=== PATIENT | male | born 1980 | race Caucasian/White ===

== ENCOUNTER 2025-02-20 08:15 | Emergency (ER) | payer MEDICAID, SELFPAY ==
[2025-02-20 08:16] VITALS: BMI 46.5
[2025-02-20 08:22] VITALS: BP 156/87; PULSE 100; RESP 18; TEMP 36.4; O2SAT 97
--- NOTE | 2025-02-20 08:24 | XR_ITS ---
Examination: CT abdomen and pelvis without contrast. Coronal 3-D reconstructions. Sagittal 2-D reconstructions. Date and time of exam: February 20, 2025, 0903 hours INDICATIONS: Onset generalized abdominal pain today CTDI: vol (mGy): 13.9 DLP: (mGycm): 977 Technique: Axial images of the abdomen have been obtained, 3 mm slice thickness Intravenous contrast material has not been administered. Low dose protocols were performed. One or more of the following dose reduction techniques were used; automated exposure control, adjustment of the mA and/or KV according to patient size, use of iterative reconstruction technique. Findings: Liver is irregular in contour 19 mm low-density inferior right lobe liver lesion likely cyst Significant splenomegaly Portosystemic collateral vessels medial to the spleen No pancreatic mass Mild right hydronephrosis, 5 mm distal right ureteral vesicle junction calculus Normal appendix No bowel obstruction Urinary bladder intact No prostatomegaly Significant disc narrowing L5-S1 IMPRESSION: Cirrhosis Splenomegaly Mild right hydronephrosis secondary to 5 mm distal right ureteral vesicle junction calculus
--- NOTE | 2025-02-20 08:24 | PD.EDRME ---
Rapid Medical Screening Exam RME Arrival date/time: 02/20/25 08:15 44-year-old male with no known medical history presents to the emergency room with a chief complaint of right-sided 10 out of 10 flank pain x 2 days I have greeted and performed a focused initial assessment of this patient. A comprehensive ED assessment and evaluation of the patient, analysis of all test results, and completion of the medical decision making process will be conducted by additional ED providers. Chief Complaint: Abdominal Pain Time Seen by Provider: 02/20/25 08:18 Vital signs: Vital Signs Temperature 97.6 F 02/20/25 08:22 Pulse Rate 100 02/20/25 08:22 Respiratory Rate 18 02/20/25 08:22 Blood Pressure 156/87 H 02/20/25 08:22 Pulse Oximetry (%) 97 02/20/25 08:22 Oxygen Delivery Method Room Air 02/20/25 08:22 Vital signs reviewed by provider: Yes Exam: Right CVA tenderness with palpation GCS 15, strong and regular rhythm, Clinical Impression: Renal calculi/pyelonephritis/appendicitis
[2025-02-20] MEDS: ONDANSETRON ODT 4 MG TABRAP PO (08:33)
[2025-02-20] MEDS: KETOROLAC INJ 60 MG/2 ML VIAL 30 MG IM (08:33)
[2025-02-20] MEDS: HYDROcodone/APAP 5/325 TABLET 1 TAB PO (08:33)
[2025-02-20 08:59] LABS: Basophils # (Auto) 0.1 Thou/mm3 (0.0-0.2); Basophils % (Auto) 1 % (0-2.5); Eosinophils # (Auto) 0.3 Thou/mm3 (0.0-0.5); Eosinophils % (Auto) 3 % (0-10); Hematocrit 48.2 % (41.0-53.0); Hemoglobin 18.4 g/dL (13.5-16.0); Immature Granulocytes Auto 0.04 Thou/mm3 (0.00-0.00); Lymphocytes # (Auto) 2.1 Thou/mm3 (1.0-4.8); Lymphocytes % (Auto) 20 % (10-50); Mean Corpuscular HGB Conc 38.2 g/dl (31.0-37.0); Mean Corpuscular Hemoglobin 33.6 pg (25.0-35.0); Mean Corpuscular Volume 88 fL (80-100); Monocytes # (Auto) 0.7 Thou/mm3 (0.0-0.8); Monocytes % (Auto) 7 % (0-12); Neutrophils # (Auto) 7.5 Thou/mm3 (1.8-7.7); Neutrophils % (Auto) 70 % (37-80); Nucleated Red Blood Cell # 0.00 Thou/mm3 (0.00-0.00); Nucleated Red Blood Cell % 0 /100 WBC (0); Platelet Count 132 Thou/mm3 (140-440); RDW Standard Deviation 41.0 fL (35.1-43.9); Red Blood Count 5.47 Miln/mm3 (4.50-5.90); White Blood Count 10.7 Thou/mm3 (3.8-10.6)
[2025-02-20 09:20] LABS: Alanine Aminotransferase 61 U/L (10-49); Albumin, Serum 4.6 gm/dL (3.5-5.0); Albumin/Globulin Ratio 2.2 (1.2-2.2); Alkaline Phosphatase 94 U/L (46-116); Anion Gap 10 (7-16); Aspartate Amino Transferase 47 U/L (0-34); BUN/Creatinine Ratio 11 Ratio (12-20); Bilirubin,Total 2.0 mg/dL (0.3-1.2); Blood Urea Nitrogen 10 mg/dL (9-23); Calcium 10.0 mg/dL (8.3-10.6); Calcium (Corrected) 10.0 mg/dL (8.5-10.1); Carbon Dioxide 26.2 mMol/L (20.0-31.0); Chloride 108 mMol/L (98-107); Creatinine (Component) 0.9 mg/dL (0.6-1.3); Estimated Creatinine Clearance 128.6 mL/min (>60); Globulin 2.1 gm/dL (2.3-3.5); Glucose 115 mg/dL (74-106); Lipase 37 U/L (12-53); Osmolality,Calculated 286 (275-295); Potassium 4.2 mMol/L (3.4-5.1); Sodium 144 mMol/L (136-145); Total Protein 6.7 gm/dL (5.7-8.2); eGFR > 60 See Note
[2025-02-20 09:28] VITALS: BP 143/88; PULSE 95; RESP 19; O2SAT 98
[2025-02-20 11:10] VITALS: BP 128/88; PULSE 89; RESP 18; TEMP 36.7; O2SAT 96
--- NOTE | 2025-02-20 11:29 | EDNOTE_ITS ---
ED Male Genitalurinary RME/HPI General Chief complaint: Abdominal Pain Stated complaint: RIGHT FLANK PAIN TODAY Time Seen by Provider: 02/20/25 08:18 Arrival date/time: 02/20/25 08:15 RME / HPI RME / HPI Narrative: 02/20/25 08:15 44-year-old male with no known medical history presents to the emergency room with a chief complaint of right-sided 10 out of 10 flank pain x 2 days I have greeted and performed a focused initial assessment of this patient. A comprehensive ED assessment and evaluation of the patient, analysis of all test results, and completion of the medical decision making process will be conducted by additional ED providers. DR. HOLLIS MAIN ED EVALUATION 44 year old male with no known medical history presents to the ED for evaluation of right flank pain beginning 2 days ago and worsening this morning. Described as colicky in sensation, rating 10/10 in severity. No known modifying factors at home. Denies fever, chills. Denies chest pain, cough, shortness of breath. Denies vomiting, di arrhea, constipation. Denies dysuria, urinary frequency and urgency. Exam: Right CVA tenderness with palpation GCS 15, strong and regular rhythm, Impression: Renal calculi/pyelonephritis/appendicitis Related Data Previous Rx's ?Medication ?Instructions ?Recorded albuterol sulfate 90 mcg/actuation 2 puff inhalation Q 6H PRN 11/06/17 aerosol inhaler (ProAir HFA) shortness of breath #6.7 grams ibuprofen 600 mg tablet 600 mg PO Q6H PRN pain #30 t abs 02/20/25 tamsulosin 0.4 mg capsule 0.4 mg PO QDAY #14 caps 02/11 Allergies Allergy/AdvReac Type Severity Reaction Status Date / Time No Known Allergies Allergy Verified 02/20/25 08:17 Review of Systems Review of Systems Systems Reviewed: All systems reviewed, normal except as documented Past Medical History Past Medical History CARDIAC: Negative Congestive Heart Failure RESPIRATORY: Negative Chronic Obstructive Pulmonary Disease (COPD) GENITOURINARY: Negative Renal Disease ENDOCRINE: Negative Diabetes Mellitus Type 1 or Diabetes Mellitus Type 2 Social History SMOKING STATUS: Never smoker ED Exam Narrative Physical exam: GENERAL APPEARANCE: alert and oriented x 4, well-developed, well-nourished, drowsy on arrival to ED HEENT: Normocephalic, atraumatic; pupils equal, round, reactive to light; EOMI; mucous membranes pink, moist; oropharynx clear NECK: Supple LUNGS: CTABL; no wheezes, no rales, no rhonchi HEART: Regular rate, regular rhythm; normal S1, S2; no murmurs ABDOMEN: non distended; normal BS; soft, no tenderness, no guarding, no rebound; no masses, no organomegaly, no hernia BACK: no CVA tenderness EXTREMITIES: atraumatic; no edema NEUROLOGIC: drowsy, oriented x4; cranial nerves II-XII grossly intact; no focal sensory or motor deficits PSYCHIATRIC: appropriate mood and affect SKIN: warm, dry, normal color; no rashes Course Course Course Narrative: Patient remains clinically stable throughout the emergency department visit. We reviewed all the results, analysis, and treatment plans. Patient is amenable to discharge. Strict return precautions were outlined. Quality Measures none Orders Category Date Time Status CT abdomen pelvis wo con Stat Exams 02/20/25 08:24 Completed CBC Stat Lab 02/20/25 08:40 Completed CMP [Comprehensive Metabolic Panel] Stat Lab 02/20/25 08:40 Completed Drug Screen,Urine Stat Lab 02/20/25 12:50 Completed Lipase Stat Lab 02/20/25 08:40 Completed UA [Urinalysis] Stat Lab 02/20/25 12:50 Completed Urine Culture Stat Lab 02/20/25 12:50 Received HYDROcodone*/APAP 5/325 [Calcium 5/325] Med 02/20/25 08:23 Discontinued 1 tab PO X1 ONE Ketorolac Inj [Toradol Inj] Med 02/20/25 08:23 Discontinued 30 mg IM X1 ONE Ondansetron Odt [Zofran Odt] Med 02/20/25 08:23 Discontinued 4 mg PO X1 ONE Sodium Chloride 0.9% 1000 ml [Ns] 1,000 ml Med 02/20/25 11:26 Discontinued IV 999 mls/hr Sodium Chloride 0.9% 1000 ml [Ns] 1,000 ml Med 02/20/25 12:27 Active IV 999 mls/hr Tamsulosin HCl [Flomax] Med 02/20/25 11:27 Discontinued 0.4 mg PO X1 ONE Vital Signs Vital signs: Vital Signs Temperature 97.6 F 02/20/25 08:22 Pulse Rate 100 02/20/25 08:22 Respiratory Rate 18 02/20/25 08:22 Blood Pressure 156/87 H 02/20/25 08:22 Pulse Oximetry (%) 97 02/20/25 08:22 Oxygen Delivery Method Room Air 02/20/25 08:22 Pulse ox is 97% on room air which is adequate. Urogenital - Male MDM Narrative MDM Narrative:: Johanny Suazo, simi scribing for and in the presence of Dr. Hollis. Patient data External records reviewed:: [facility] previous records Clinical information provided by:: patient Social determinants that could affect healthcare access:: none Patient has the following chronic illnesses:: No stated medical history reported How is presenting disease/condition affected by chronic disease/condition?: no chronic disease Evaluation data The following diagnostics were reviewed and interpreted by me:: lab results and radiology exam(s) Lab and/or radiology exams considered but not ordered:: None Interpretation Summary: Ordering Physician: Jerry Herrmann Date of Service: 02/20/25 Procedure(s): CT abdomen pelvis wo con Accession Number(s): [id number] cc: Jerry Herrmann; Gaudencio Sinclair MD; Carlton Talbert MD~ Examination: CT abdomen and pelvis without contrast. Coronal 3-D reconstructions. Sagittal 2-D reconstructions. Date and time of exam: February 20, 2025, 0903 hours INDICATIONS: Onset generalized abdominal pain today CTDI: vol (mGy): 13.9 DLP: (mGycm): 977 Technique: Axial images of the abdomen have been obtained, 3 mm slice thickness Intravenous contrast material has not been administered. Low dose protocols were performed. One or more of the following dose reduction techniques were used; automated exposure control, adjustment of the mA and/or KV according to patient size, use of iterative reconstruction technique. Findings: Liver is irregular in contour 19 mm low-density inferior right lobe liver lesion likely cyst Significant splenomegaly Portosystemic collateral vessels medial to the spleen No pancreatic mass Mild right hydronephrosis, 5 mm distal right ureteral vesicle junction calculus Normal appendix No bowel obstruction Urinary bladder intact No prostatomegaly Significant disc narrowing L5-S1 IMPRESSION: Cirrhosis Splenomegaly Mild right hydronephrosis secondary to 5 mm distal right ureteral vesicle junction calculus Dictated By: Carlton Talbert MD Signed By: <Electronically signed by Carlton Talbert MD in OV> 02/20/25 1026 Medications / Prescriptions Medications or Prescriptions considered but not ordered:: None Medication administrations:: Medication Administration History Sodium Chloride (Ns) 1,000 mls @ 999 mls/hr IV .Q1H1M ONE Stop: 02/20/25 13:27 Last Admin: 02/20/25 12:13 Dose: 999 mls/hr Documented By: VL Discontinued Medications Hydrocodone Bitart/Acetaminophen (Hydrocodone/Apap 5/325 Tablet) 1 tab PO X1 ONE Stop: 02/20/25 08:24 Last Admin: 02/20/25 08:33 Dose: 1 tab Documented By: VL Sodium Chloride (Ns) 1,000 mls @ 999 mls/hr IV .Q1H1M ONE Stop: 02/20/25 12:26 Last Admin: 02/20/25 11:51 Dose: 999 mls/hr Documented By: JESICA Ketorolac Tromethamine (Ketorolac Inj 60 Mg/2 Ml Vial) 30 mg IM X1 ONE Stop: 02/20/25 08:24 Last Admin: 02/20/25 08:33 Dose: 30 mg Documented By: JESICA Ondansetron HCl (Ondansetron Odt 4 Mg Tabrap) 4 mg PO X1 ONE; Protocol Stop: 02/20/25 08:24 Last Admin: 02/20/25 08:33 Dose: 4 mg Documented By: JESICA Tamsulosin HCl (Tamsulosin Hcl 0.4 Mg Capsule) 0.4 mg PO X1 ONE Stop: 02/20/25 11:28 Last Admin: 02/20/25 11:49 Dose: 0.4 mg Documented By: JESICA See above Consultations Consultation(s) initiated? (list below): No Diagnosis Urogenital Male Differential Diagnosis: acute retention of urine and other (kidney stone, UTI ) Most likely diagnosis given after review of the tests above:: Right distal ureteral calculus Admission Indicated Admission indicated?: not indicated Explain why admission is indicated or not indicated:: With no condition needing emergent intervention, there was no indication for admission. Admission Request Was there a request for admission?: No Disposition Plan Disposition Plan: Discharge Discharge Attestation Discharge Attestation: The patient and all family members were given an opportunity to ask questions and understood the discharge instructions. Discharge instructions specifically effects, indications for sooner follow up or return to the emergency department, and the expected course of current diagnosis. Patient condition: Stable Discharge Plan Plan Patient Disposition: HOME (Self Care) Prescriptions/Referrals Prescriptions/Med Rec: New tamsulosin 0.4 mg capsule 0.4 mg PO QDAY Qty: 14 0RF ibuprofen 600 mg tablet 600 mg PO Q6H PRN (Reason: pain) Qty: 30 0RF No Action albuterol sulfate [ProAir HFA] 90 mcg/actuation HFA aerosol inhaler 2 puff INH Q6H PRN (Reason: shortness of breath) Qty: 6.7 2RF Rx Instructions: administer with spacer Referrals: Gaudencio Sinclair MD [Primary Care Provider, Family Practice] - In 1 week Problem List Clinical Impression: Right distal ureteral calculus Patient/Caregiver Discharge Instructions Education Materials: ED Kidney Stone w/ Colic Print Language: Arabic Stand Alone Forms: Carine Award Info., Patient Portal Info Letter
[2025-02-20] MEDS: TAMSULOSIN HCL 0.4 MG CAPSULE PO (11:49)
[2025-02-20] MEDS: SODIUM CHLORIDE 0.9% 1000 ML 1,000 ML 999 ML IV ×2 (11:51→12:13)
[2025-02-20 12:57] LABS: Collection Type, Urine Clean Catch; Squamous Epithelial Cell,Urine 0 /hpf (0-5)
[2025-02-20 13:03] LABS: Amorphous Crystals,Urine Present (Absent); Bacteria,Urine Rare; Bilirubin,Urine Negative (Negative); Blood,Urine 3+ (Negative); Color,Urine Yellow (Lt Yel-Yel); Glucose, Urine Negative (Negative); Ketones,Urine Negative (Negative); Leukocyte Esterase,Urine Negative (Negative); Nitrite,Urine Negative (Negative); PH,Urine 7.0 (5.0-7.0); Protein,Urine Trace (Neg - Trace); RBC,Urine 187 /hpf (0-3); Specific Gravity,Urine 1.025 (1.001-1.035); Urobilinogen,Urine 8.0 mg/dL (0.0-1.0); WBC,Urine 1 /hpf (0-5)
[2025-02-20 13:04] LABS: Clarity,Urine Turbid (Clear/Hazy)
[2025-02-20 13:21] LABS: Amphetamine/Methamp Scrn,U Positive (Negative); Barbiturate Screen,Urine Negative (Negative); Benzodiazepines Screen,Urine Negative (Negative); Benzoylecgonine Screen, Ur Negative (Negative); Fentanyl Screen,Urine Negative (Negative); Opiate Screen,Urine Negative (Negative); THC Screen,Urine Negative (Negative)
[2025-02-20 13:26] VITALS: BP 154/106; PULSE 80; RESP 16; O2SAT 97
== END 2025-02-20 13:29 | disposition home or self-care (01) ==
PROVIDERS: Nurse Practitioner Family; Emergency Provider Emergency Medicine; PCP Family Medicine
DX: K37 Unspecified appendicitis (principal); N13.6 Pyonephrosis
CPT/HCPCS: 36415; 74176; 80053; 80307; 81001; 83690; 85025; 87086; 96360; 96361; 96372; 99284; J1885; J7030; Q0162; A9270